=== PATIENT | male | born 1950 | race Caucasian/White ===

== ENCOUNTER 2017-05-06 14:24 | Emergency (ER) | payer OTHER ==
[2017-05-06 14:37] VITALS: BP 217/124
[2017-05-06] MEDS ORDERED: IPRATROPIUM/ALBUTEROL 3 ML NEB INH STA (14:42)
[2017-05-06] MEDS ORDERED: predniSONE 20 MG TABLET PO STA (14:42)
[2017-05-06] MEDS ORDERED: SODIUM CHLORIDE 0.9% 1,000 ML IV ONE (14:42)
--- NOTE | 2017-05-06 14:46 | ED Physician Documentation ---
PD HPI URI - Stated complaint Stated Complaint: SOA/COUGH - Chief complaint Chief Complaint: Resp - History obtained from History obtained from: Patient - History of Present Illness Timing - onset: How many days ago (2) Timing duration: Days (2) Timing details: Gradual onset Pain level max: 4 Pain level now: 4 Associated symptoms: Fever, Chills, Nasal congestion, Rhinorrhea, Dry cough, Dyspnea (wheezing). No: Chest pain (states hard to breathe) Contributing factors: Sick contact, COPD / asthma (smokes) Improves by: Rest Worsened by: Activity, Breathing Similar symptoms before: Diagnosis (pneumonia) Recently seen: Not recently seen Review of Systems Constitutional: reports: Fever, Chills Ears: denies: Ear pain Throat: denies: Sore throat Respiratory: reports: Dyspnea, Cough GI: denies: Abdominal Pain, Nausea, Vomiting, Diarrhea Skin: denies: Rash Musculoskeletal: denies: Neck pain, Back pain Neurologic: denies: Headache PD PAST MEDICAL HISTORY - Past Medical History Past Medical History: Yes GI: Hepatitis - Past Surgical History Past Surgical History: No - Present Medications Home Medications: Ambulatory Orders Medication Instructions Recorded Confirmed Albuterol Sulf [Ventolin Hfa 2 puffs INH Q4HR PRN #1 inhaler 05/06/17 Inhaler] Azithromycin [Zithromax] 0 mg PO DAILY #6 tablet 05/06/17 Benzonatate [Tessalon Perle] 100 - 200 mg PO TID PRN #30 capsule 05/06/17 Cetirizine [ZyrTEC] 10 mg PO DAILY 05/06/17 05/06/17 predniSONE [Prednisone] 40 mg PO DAILY #10 tablet 05/06/17 - Allergies Allergies/Adverse Reactions: Allergies Allergy/AdvReac Type Severity Reaction Status Date / Time No Known Drug Allergies Allergy Verified 03/25/16 22:01 - Living Situation Living Situation: reports: With family Living Arrangement: reports: At home - Social History Does the pt smoke?: Yes Smoking Status: Current every day smoker Does the pt drink ETOH?: Yes Does the pt have substance abuse?: No - Family History Family history: reports: Non contributory - Immunizations Immunizations are current?: No - POLST Patient has POLST: No PD ED PE NORMAL - Vitals Vital signs reviewed: Yes - General General: Alert and oriented X 3, No acute distress - HEENT HEENT: PERRL, Ears normal, Moist mucous membranes, Pharynx benign - Neck Neck: Supple, no meningeal sign - Cardiac Cardiac: RRR - Respiratory Respiratory: No respiratory distress, Other (decreased breath sounds B. wheezing B.) - Abdomen Abdomen: Soft, Non tender, Non distended - Derm Derm: Warm and dry - Neuro Neuro: Alert and oriented X 3 - Psych Psych: Normal mood, Normal affect Results - Vitals Vitals: Vital Signs - 24 hr 05/06/17 05/06/17 14:33 15:31 Temperature 37.9 C H Heart Rate 110 H 114 H Respiratory 24 20 Rate Blood Pressure 217/124 H O2 Saturation 95 Oxygen O2 Source Room air - EKG (time done) 1435 Rate: Rate (enter#) (102) Rhythm: Sinus tachycardia [place]: Normal Intervals: Normal VA QRS: Normal Ischemia: Normal ST segments - Labs Labs: Laboratory Tests 05/06/17 05/06/17 05/06/17 14:55 14:55 15:33 WBC 12.4 H RBC 4.98 Hgb 16.6 Hct 47.6 MCV 95.6 H MCH 33.4 H MCHC 35.0 RDW 13.0 Plt Count 103 L MPV 10.3 Neut # 11.0 H Lymph # 0.6 L [place] # 0.8 Eos # 0.0 Baso # 0.0 Absolute Nucleated RBC 0.01 Nucleated RBC % 0.1 Sodium 135 Potassium 3.5 Chloride 100 L Carbon Dioxide 19 L Anion Gap 16.0 H BUN 15 Creatinine 0.9 Estimated GFR (MDRD) 85 L Glucose 96 Lactic Acid 2.1 Calcium 8.6 Total Bilirubin 0.8 AST 130 H ALT 76 H Alkaline Phosphatase 102 Total Protein 7.8 Albumin 4.0 Globulin 3.8 Albumin/Globulin Ratio 1.1 Lipase 54 H - Rads (name of study) cxr Radiology: Prelim report reviewed, EMP read contemporaneously, See rad report ( No acute intrathoracic plain film abnormality. ) PD MEDICAL DECISION MAKING - ED course Complexity details: reviewed old records, reviewed results, re-evaluated patient , considered differential, d/w patient ED course: Patient is a 66-year-old male who presents to the emergency department with what appears to be a COPD exacerbation accompanied by fever and elevated white blood cell count. Therefore will cover with antibiotics. Also place on steroids, inhalers and Tessalon for home. He is well-appearing, nontoxic. No hypoxia or respiratory distress. Patient counseled regarding signs and symptoms for which I believe and urgent re-evaluation would be necessary. Patient with good understanding of and agreement to plan and is comfortable going home at this time This document was made in part using voice recognition software. While efforts are made to proofread this document, sound alike and grammatical errors may occur. Departure - Departure Disposition: Home, Self Care Clinical Impression: Moderate COPD (chronic obstructive pulmonary disease), Atypical pneumonia Condition: Good Instructions: ED COPD Flare, ED Pneumonia Adult Follow-Up: MOJGAN WRIGHT [Primary Care Provider] - Within 1 week Prescriptions: Albuterol Sulf [Ventolin Hfa Inhaler] 2 puffs INH Q4HR PRN #1 inhaler PRN Reason: Wheezing Azithromycin [Zithromax] 0 mg PO DAILY #6 tablet Benzonatate [Tessalon Perle] 100 - 200 mg PO TID PRN #30 capsule PRN Reason: Cough predniSONE [Prednisone] 40 mg PO DAILY #10 tablet Comments: Return if you worsen. Take all antibiotics until gone.
[2017-05-06 15:06] LABS: BASOPHILS % (AUTO) 0.1 %; HGB - HEMOGLOBIN 16.6 g/dL (14.0-18.0); LYMPHOCYTES # (AUTO) 0.6 10^3/uL (1.5-3.5); LYMPHOCYTES % (AUTO) 5.1 %; MEAN CORPUSCULAR HEMOGLOBIN 33.4 pg (27.0-31.0); MEAN CORPUSCULAR VOLUME 95.6 fL (80.0-94.0); MEAN PLATELET VOLUME 10.3 fL (7.4-11.4); MONOCYTES # (AUTO) 0.8 10^3/uL (0.0-1.0); MONOCYTES % (AUTO) 6.3 %; NEUTROPHILS % (AUTO) 88.5 %; PLT - PLATELET COUNT 103 10^3/uL (130-450); RED BLOOD COUNT 4.98 10^6/uL (4.70-6.10); WHITE BLOOD COUNT 12.4 x10^3/uL (4.8-10.8)
[2017-05-06 15:14] LABS: ALBUMIN/GLOBULIN RATIO 1.1 (1.0-2.2); BILIRUBIN,TOTAL 0.8 mg/dL (0.2-1.0); CALCIUM 8.6 mg/dL (8.5-10.3); CREATININE 0.9 mg/dL (0.6-1.2); TOTAL PROTEIN 7.8 g/dL (6.7-8.2)
--- NOTE | 2017-05-06 15:14 | XRAY Report ---
EXAM: CHEST RADIOGRAPHY EXAM DATE: 05/06/2017 03:01 PM. CLINICAL HISTORY: Cough. COMPARISON: 03/26/2016. TECHNIQUE: 1 view. FINDINGS: Lungs/Pleura: No focal opacities evident. No pleural effusion. No pneumothorax. Mediastinum: Within exam limitations, the cardiomediastinal contour is normal. Other: None. IMPRESSION: No acute intrathoracic plain film abnormality. [facility] Referring Provider Line: [phone] SITE ID: [id number]
== END 2017-05-06 16:15 | disposition home or self-care (01) ==
LOC: ED 14:24
DX: J44.9 Chronic obstructive pulmonary disease, unspecified (principal); J18.9 Pneumonia, unspecified organism; R00.0 Tachycardia, unspecified; D72.829 Elevated white blood cell count, unspecified; K75.9 Inflammatory liver disease, unspecified; F17.200 Nicotine dependence, unspecified, uncomplicated
CPT/HCPCS: 36415; 71045; 80053; 83605; 83690; 85025; 93005; 94664; 96360; 99283; 99284; J7512; J7620